=== PATIENT | male | born 1980 | race African-American/Black ===

== ENCOUNTER 2016-10-30 07:24 | Emergency (ER) | payer OTHER ==
[~2016-10-30] VITALS: Ht 188 cm; Wt 94.3 kg
[2016-10-30 07:30] VITALS: BP 135/85
== END 2016-10-30 08:07 | disposition home or self-care (01) ==
LOC: ED 07:24
DX: L02.425 Furuncle of right lower limb (principal); F17.210 Nicotine dependence, cigarettes, uncomplicated
CPT/HCPCS: 99406

== ENCOUNTER 2016-11-29 08:57 | Emergency (ER) | payer OTHER ==
[~2016-11-29] VITALS: Ht 188 cm; Wt 93.4 kg
[2016-11-29 10:42] VITALS: BP 146/97
== END 2016-11-29 10:42 | disposition home or self-care (01) ==
LOC: ED 08:57
DX: J98.01 Acute bronchospasm (principal); J02.9 Acute pharyngitis, unspecified; F17.210 Nicotine dependence, cigarettes, uncomplicated; Z71.6 Tobacco abuse counseling
CPT/HCPCS: 99406; J2930; J7613; J7644

== ENCOUNTER 2017-03-19 09:43 | Emergency (ER) | payer OTHER ==
[2017-03-19 12:56] VITALS: BP 129/79
== END 2017-03-19 12:56 | disposition home or self-care (01) ==
LOC: ED 09:43
DX: M54.89 Other dorsalgia (principal); F17.210 Nicotine dependence, cigarettes, uncomplicated; Z71.6 Tobacco abuse counseling; M79.5 Residual foreign body in soft tissue
CPT/HCPCS: 99406

== ENCOUNTER 2017-10-20 11:11 | Emergency (ER) | payer MEDICAID ==
[~2017-10-20] VITALS: Ht 188 cm; Wt 94.3 kg
[2017-10-20 13:46] VITALS: BP 142/81
== END 2017-10-20 13:45 | disposition home or self-care (01) ==
LOC: ED 11:11
DX: H57.12 Ocular pain, left eye (principal)

== ENCOUNTER 2018-08-25 08:18 | Emergency (ER) | payer MEDICAID ==
[~2018-08-25] VITALS: Ht 188 cm; Wt 95.8 kg
[2018-08-25 08:34] VITALS: BP 157/92; Ht 188 cm; Wt 95.8 kg
== END 2018-08-25 09:03 | disposition home or self-care (01) ==
LOC: ED 08:18
DX: M25.512 Pain in left shoulder (principal); M54.6 Pain in thoracic spine; Z98.890 Other specified postprocedural states
CPT/HCPCS: J1885